=== PATIENT | female | born 1955 | race Caucasian/White ===

== ENCOUNTER → 2016-11-04 08:02 | Outpatient (CLI) | payer BC ==
[2016-11-04 09:16] LABS: BASOPHILS 0.2 % (0.0-2.0); EOSINOPHILS 2.6 % (0-7); HEMOGLOBIN 15.9 g/dL (12-16); LYMPHOCYTES 30.6 % (15-50); MCH 32.2 pg (26.0-34.0); MCHC 35.3 g/dL (31.0-37.0); MCV 91.1 fL (80.0-100.0); MEAN PLATELET VOLUME 10.1 fL (7.4-10.4); MONOCYTES 8.9 % (2-11); NEUTROPHILS 57.7 % (40-80); PLATELET COUNT 111 10x3/uL (130-400); RBC 4.94 10x6/uL (4.00-5.40); RDW 12.4 % (11.5-14.5); WBC 5.8 10x3/uL (4.8-10.8)
[2016-11-04 09:43] LABS: APTT 28.7 SECONDS (22.8-39.4); INR 1.08 (0.85-1.17); PROTIME 13.9 SECONDS (11.6-15.0)
[2016-11-04 09:51] LABS: % SATURATION 52 % (15-55); IRON 143 ug/dl (35-150); TOTAL IRON BIND CAPACITY 271 ug/dl (260-445); UNSAT IRON BIND CAPACITY 128 ug/dl (150-375)
[2016-11-04 10:04] LABS: ALBUMIN 3.7 g/dL (3.4-5.0); ANION GAP 13.2 mmol/L (8-16); BILIRUBIN - DIRECT 0.22 mg/dL (0.00-0.30); BILIRUBIN - INDIRECT 0.88 mg/dL (0.00-1.00); BILIRUBIN - TOTAL 1.1 mg/dL (0.2-1.3); CARBON DIOXIDE 29.8 mmol/L (21.0-32.0); CREATININE - SERUM 0.9 mg/dL (0.6-1.3); PROTEIN - SERUM 7.3 g/dL (6.4-8.2)
[2016-11-05 08:23] LABS: FOLATE (FOLIC ACID) - SERUM 17.8 ng/mL (>3.0)
[2016-11-05 09:17] LABS: HAPTOGLOBIN 53 mg/dL (34-200); HEPATITIS C ANTIBODY <0.1 (0.0-0.9)
[2016-11-05 14:21] LABS: ANA REFLEX - ANTICHROMATIN ABS 0.4 AI (0.0-0.9); ANA REFLEX - CENTROMERE B ABS <0.2 AI (0.0-0.9); ANA REFLEX - DBL STRANDED DNA 8 IU/mL (0-9); ANA REFLEX - DIRECT Positive (Negative); ANA REFLEX - JO-1 AB <0.2 AI (0.0-0.9); ANA REFLEX - RNP ANTIBODIES 1.1 AI (0.0-0.9); ANA REFLEX - SCL-70 <0.2 AI (0.0-0.9); ANA REFLEX - SJOGRENS AB SSA <0.2 AI (0.0-0.9); ANA REFLEX - SJOGRENS AB SSB <0.2 AI (0.0-0.9); ANA REFLEX - SMITH AB <0.2 AI (0.0-0.9)
[2016-11-06 13:17] LABS: MITOCHONDRIAL ANTIBODY 6.1 Units (0.0-20.0); SMOOTH MUSCLE ABS (ACTIN) 7 Units (0-19)
== END | disposition home or self-care (01) ==
LOC: D.US 10-09 08:30
PROVIDERS: Internal Medicine Gastroenterology
DX: R74.8 Abnormal levels of other serum enzymes (principal)

== ENCOUNTER → 2017-12-08 15:08 | Outpatient (CLI) | payer BC | END | disposition home or self-care (01) | LOC: D.MAMMO 10-14 15:45 | DX: Z12.31 Encounter for screening mammogram for malignant neoplasm of breast (principal) ==

== ENCOUNTER → 2018-01-14 17:00 | Outpatient (CLI) | payer BC | END | disposition home or self-care (01) | LOC: D.MAMMO 14:00 | DX: R92.8 Other abnormal and inconclusive findings on diagnostic imaging of breast (principal) ==

== ENCOUNTER 2019-07-06 15:30 | Outpatient (CLI) | payer BC | END 2019-07-06 16:00 | disposition home or self-care (01) | LOC: D.MAMMO 15:30 | PROVIDERS: ATTEND Specialist | DX: Z12.31 Encounter for screening mammogram for malignant neoplasm of breast (principal) ==

== ENCOUNTER 2020-07-23 10:45 | Outpatient (CLI) | payer BC | END 2020-07-23 16:00 | disposition home or self-care (01) | LOC: D.MAMMO 10:45 | PROVIDERS: ATTEND Specialist | DX: Z12.31 Encounter for screening mammogram for malignant neoplasm of breast (principal) ==